=== PATIENT | male | born 1980 | race Caucasian/White ===

== ENCOUNTER 2020-12-17 11:54 | Emergency (ER) | payer OTHER ==
[2020-12-17] MEDS ORDERED: NAPROXEN500 MG PO (14:22)
[2020-12-17] MEDS ORDERED: NORFLEX 100 MG100 MG PO (14:22)
== END 2020-12-17 14:27 | disposition home or self-care (01) ==
LOC: ER1 11:54
DX: S22.31XA Fracture of one rib, right side, initial encounter for closed fracture (principal); Z90.49 Acquired absence of other specified parts of digestive tract; F17.210 Nicotine dependence, cigarettes, uncomplicated; Z79.899 Other long term (current) drug therapy; W22.8XXA Striking against or struck by other objects, initial encounter
CPT/HCPCS: 71111; 99283